=== PATIENT | male | born 1995 | race American Indian/Alaskan Native ===

== ENCOUNTER 2017-02-06 04:22 | Emergency (ER) | payer OTHER ==
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
[2017-02-06 05:58] VITALS: BP 119/76
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
== END 2017-02-06 08:04 | disposition home or self-care (01) ==
LOC: ED 04:22
DX: S80.12XD Contusion of left lower leg, subsequent encounter (principal); M54.5 Low back pain; V49.49XA Driver injured in collision with other motor vehicles in traffic accident, initial encounter; Y93.89 Activity, other specified; Y92.89 Other specified places as the place of occurrence of the external cause; Y99.8 Other external cause status
CPT/HCPCS: 70450; 72100